=== PATIENT | female | born 1970 | race Caucasian/White ===

== ENCOUNTER 2020-08-11 09:25 | Emergency (ER) | payer OTHER | END 2020-08-11 10:28 | disposition home or self-care (01) | LOC: CSHERS 09:25 | DX: M79.672 Pain in left foot (principal); I10 Essential (primary) hypertension; E78.5 Hyperlipidemia, unspecified; E78.00 Pure hypercholesterolemia, unspecified; Z86.73 Personal history of transient ischemic attack (TIA), and cerebral infarction without residual deficits; E11.40 Type 2 diabetes mellitus with diabetic neuropathy, unspecified; Z79.4 Long term (current) use of insulin; Z79.899 Other long term (current) drug therapy ==

== ENCOUNTER 2021-04-10 08:56 | Emergency (ER) | payer OTHER ==
[2021-04-10 09:48] LABS: #Basophils 0.1 10x3/uL (0.0-0.2); #Eosinphils 0.3 10x3/uL (0.0-0.5); #Neutrophils 2.7 10x3/uL (1.5-8.4); %Eosinophils 4.8 % (0.0-6.0); %Lymphocytes 41.1 % (18.0-47.0); %Monocytes 14.1 % (0.0-10.0); Hemoglobin 14.3 g/dL (12.0-15.5); Mean Corpuscular HGB CONC 32.9 g/dL (32.0-36.0); Mean Corpuscular Volume 91.2 fl (81.6-98.3); Mean Platelet Volume 10.6 fl (7.4-10.4); Platelet Count 232 10x3/uL (150-450); RBC Distribution Width 14.2 % (11.5-14.5); Red Blood Cell (RBC) Count 4.76 10x6/uL (3.90-5.03); White Blood Cell (WBC) Count 7.1 10x3/uL (3.5-10.5)
[2021-04-10 10:03] LABS: ALT (SGPT) 129 U/L (8-55); AST (SGOT) 37 U/L (5-34); Albumin 4.6 g/dL (3.5-5.0); Alkaline Phosphatase 188 U/L (40-110); Anion Gap 15 mmol/L (10-20); BUN (Urea Nitrogen) 23 mg/dL (9.8-20.1); Bilirubin, Total 0.5 mg/dL (0.2-1.2); Calc. Creatinine Clearance 0 mL/min (70-130); Calcium 9.5 mg/dL (7.8-10.44); Carbon Dioxide 25 mmol/L (22-29); Chloride 104 mmol/L (98-107); Globulin 2.9 g/dL (2.4-3.5); Glucose 180 mg/dL (70-105); Protein, Total 7.5 g/dL (6.0-8.3); Sodium 140 mmol/L (136-145)
[2021-04-10 10:27] LABS: SARS-CoV-2 NAA Rapid Test Not Detected (NotDetected)
== END 2021-04-10 12:24 | disposition home or self-care (01) ==
LOC: CSHERS 08:56
DX: R06.02 Shortness of breath (principal); F41.9 Anxiety disorder, unspecified; Z20.822 Contact with and (suspected) exposure to COVID-19; I10 Essential (primary) hypertension; E11.40 Type 2 diabetes mellitus with diabetic neuropathy, unspecified; E78.5 Hyperlipidemia, unspecified; E78.00 Pure hypercholesterolemia, unspecified; Z86.73 Personal history of transient ischemic attack (TIA), and cerebral infarction without residual deficits
CPT/HCPCS: 0240U; 71045; 71275; 80053; 83605; 83880; 84484; 85025; 87040; 93005

== ENCOUNTER 2021-04-24 13:55 | Outpatient (CLI) | payer OTHER ==
[2021-04-24 16:19] LABS: Anion Gap 15 mmol/L (10-20); BUN (Urea Nitrogen) 19 mg/dL (9.8-20.1); Calc. Creatinine Clearance 0 mL/min (70-130); Calcium 9.6 mg/dL (7.8-10.44); Carbon Dioxide 26 mmol/L (22-29); Chloride 104 mmol/L (98-107); Glucose 164 mg/dL (70-105); Potassium 4.4 mmol/L (3.5-5.1); Sodium 141 mmol/L (136-145)
[2021-04-24 22:29] LABS: SARS-CoV-2 PCR by NAA Not Detected (NotDetected)
== END 2021-04-24 13:56 | disposition home or self-care (01) ==
LOC: CSHLAB 13:55
PROVIDERS: ATTEND Podiatrist Foot & Ankle Surgery
DX: Z01.812 Encounter for preprocedural laboratory examination (principal); Z20.822 Contact with and (suspected) exposure to COVID-19
CPT/HCPCS: 80048; U0003; U0005

== ENCOUNTER 2021-04-25 10:29 | Day surgery (SDC) | payer OTHER ==
[2021-04-19 10:04] VITALS: BMI 43.4
[2021-04-25] MEDS ORDERED: Lidocaine 1% MPF 2 ML VIAL ONE (11:43)
[2021-04-25] MEDS ORDERED: Midazolam HCl 2 mg/2 ml Vial ONE ×2 (13:01→13:32)
[2021-04-25] MEDS ORDERED: Famotidine/PF 20 mg/2ml Vial ONE (13:02)
[2021-04-25] MEDS ORDERED: Bupivacaine PF 0.5% 30 ML VIAL ONE (13:26)
[2021-04-25] MEDS ORDERED: Neomycin-Polymyxin 1 ML AMP ONE (13:27)
[2021-04-25] MEDS ORDERED: PROPOFOL 20 ML ONE (13:32)
[2021-04-25] MEDS ORDERED: Ondansetron PF 4 MG/2 ML Vial ONE ×2 (13:32→15:16)
[2021-04-25] MEDS ORDERED: Dexamethasone 20 MG/5 ML VIAL ONE (13:32)
[2021-04-25] MEDS ORDERED: Fentanyl 100 MCG/2 ML VIAL ONE ×2 (13:32→15:22)
[2021-04-25] MEDS ORDERED: Lidocaine 1% PF 5 ML VIAL ONE (13:33)
[2021-04-25] MEDS ORDERED: ceFAZolin 2 GM/Dextrose 50 ML IVPB ONE (13:38)
[2021-04-25] MEDS ORDERED: Succinylcholine 200 MG/10 ml SYRINGE FS ONE (13:50)
[2021-04-25] MEDS ORDERED: SUGAMMADEX SODIUM 200 MG/2 ML VIAL ONE (14:16)
[2021-04-25] MEDS ORDERED: PHENYLEPHRINE-NS 100 MCG/ML 10 ML SYRINGE ONE (14:17)
[2021-04-25] MEDS ORDERED: ePHEDrine Sulfate 50 MG/10 ML VIAL ONE (14:39)
== END 2021-04-25 16:24 | disposition home or self-care (01) ==
LOC: CSHSDC 10:29
PROVIDERS: ATTEND Podiatrist Foot & Ankle Surgery
PROC: 0QSP04Z Reposition Left Metatarsal with Internal Fixation Device, Open Approach (ICD-10-PCS; principal; 2021-04-25)
DX: S92.352G Displaced fracture of fifth metatarsal bone, left foot, subsequent encounter for fracture with delayed healing (principal); E11.40 Type 2 diabetes mellitus with diabetic neuropathy, unspecified; F31.9 Bipolar disorder, unspecified; I10 Essential (primary) hypertension; Z01.812 Encounter for preprocedural laboratory examination; Z20.822 Contact with and (suspected) exposure to COVID-19
CPT/HCPCS: 36416; 76000; 80048; C1713; J0690; J1100; J2250; J2405; J2704; J3010; S0020; S0028; U0003; U0005